=== PATIENT | male | born 1960 | race Asian ===

== ENCOUNTER 2018-09-11 06:17 | Day surgery (SDC) | payer OTHER ==
[~2018-09-11] VITALS: Ht 180.3 cm; Wt 135.9 kg
[2018-09-11 07:21] VITALS: Ht 180.3 cm; Wt 135.9 kg
[2018-09-11 07:24] VITALS: BP 168/100; PULSE 82; RESP 17
[2018-09-11] MEDS ORDERED: LOSARTAN (07:31)
--- NOTE | 2018-09-11 07:33 | PREAC ---
Date/Time of Note Date/Time of Note DATE: 09/11/18 TIME: 07:32 Anesthesia Eval and Record Evaluation Time Pre-Procedure Interview DATE: 09/11/18 TIME: 07:32 Age 58 Sex male NPO: 8 hrs Preoperative diagnosis screening Planned procedure colonoscopy Past Medical History Past Medical History: Includes Cardio: HTN, Dyslipidemia GI: Obesity, Morbid obesity Surgery & Anesthesia Issues No known issue Meds Anticoagulation: No Beta Alf within 24 hr: No Reason Beta Alf not given: Pt. not on B-Alf Reported Medications [Losartan] No Conflict Check 09/11/18 Meds reviewed: Yes Allergies Allergies Reviewed: Yes Labs/Studies Labs Reviewed: Reviewed by anesthesiologist test: N/A Studies: ECG Pre-procedure Exam Last vitals Vital Signs Date Temp Pulse Resp B/P (MAP) Pulse Ox O2 O2 Flow FiO2 Time Delivery Rate 09/11/18 97.9 82 17 168/100 99 Room Air 07:24 (122) Airway: Adequate mouth opening, Adequate thyromental dist Mallampati: Mallampati II Teeth: Normal Lung: Normal Heart: Normal ASA Physical Status ASA physical status: 2 Emergency: None Planned Anesthetic General/MAC: MAC Pre-operative Attestations Prior to commencing anesthesia and surgery, the patient was re-evaluated, there was verification of: *The patient's identity *The results of appropriate recent lab work and preoperative vital signs *The above evaluation not changing prior to induction *Anesthetic plan, risk benefits, alternative and complications discussed with patient/family; questions answered; patient/family understands, accepts and wishes to proceed. JOSE WOODSON Sep 11, 2018 07:33
[2018-09-11] MEDS ORDERED: GLYCOPYRROLATE 0.4 MG INJ ONE (08:05)
[2018-09-11] MEDS ORDERED: LIDOCAINE 100 MG SYRINGE ONE (08:06)
[2018-09-11] MEDS ORDERED: PROPOFOL 40 ML ONE (08:06)
[2018-09-11 08:42] VITALS: BP 163/98; PULSE 77; RESP 16
--- NOTE | 2018-09-12 07:58 | PAC ---
Date/Time of Note Date/Time of Note DATE: 09/12/18 TIME: 07:58 Post-Anesthesia Notes Post-Anesthesia Note Last documented vital signs Vital Signs Date Temp Pulse Resp B/P (MAP) Pulse Ox O2 O2 Flow FiO2 Time Delivery Rate 09/11/18 77 16 163/98 97 Room Air 08:42 (119) 09/11/18 97.9 07:24 Activity: WNL Respiratory function: WNL Cardiovascular function: WNL Mental status: Baseline Pain reasonably controlled: Yes Hydration appropriate: Yes Nausea/Vomiting absent: Yes JOSE WOODSON Sep 12, 2018 07:58
== END 2018-09-11 10:05 | disposition home or self-care (01) ==
LOC: GIL 06:17
PROVIDERS: ATTEND Internal Medicine Gastroenterology
DX: Z12.11 Encounter for screening for malignant neoplasm of colon (principal); D12.5 Benign neoplasm of sigmoid colon; K57.30 Diverticulosis of large intestine without perforation or abscess without bleeding
CPT/HCPCS: 45380; 88305; J2001; Z7610